=== PATIENT | female | born 1955 | race Caucasian/White ===

== ENCOUNTER 2022-12-14 16:52 | Outpatient (REF) | payer OTHER, SELFPAY ==
[2022-12-14 17:37] LABS: Influenza A PCR NEGATIVE (Negative); Influenza B PCR NEGATIVE (Negative); Resp Syncy Virus RNA Qual PCR NEGATIVE (Negative); SARS COV2 PCR INHOUSE NEGATIVE (Negative)
== END 2022-12-14 16:53 | disposition home or self-care (01) ==
LOC: HO.LNP 16:52
PROVIDERS: Visit Provider Nurse Practitioner Family
DX: Z20.822 Contact with and (suspected) exposure to COVID-19 (principal); R09.89 Other specified symptoms and signs involving the circulatory and respiratory systems
CPT/HCPCS: 0241U

== ENCOUNTER 2024-12-26 15:44 | Outpatient (AMB) | payer OTHER, SELFPAY ==
--- OUTSIDE RECORDS SUMMARY | 2024-12-26 15:46 | XMS_ITS | Patient Health Record ---
Author Organization [facility] Jefry gina [place] Address [address] [place] [address] Care Team Providers Care Timber Hewer Name Role Phone Tiago Green MD Primary Care Provider Unavail able FitzpatrickRandy Unavailable [phone] Allergies No Known Allergies Reason For Referral No Information Medications Medication SIG (Take, Route, Frequency, Duration) Notes Start Date End Date Status Feldene 20 MG 1 capsule with food Orally Once a day for 30 day(s) 06/19/2022 Active Feldene 20 MG 1 capsule with food Orally Once a day for 30 day(s) 07/10/2022 Active Night Splint AFO - L1930 as directed 06/19/2022 Active Physical Therapy . . . 2-3x/week for 3-4 weeks Active Collagen Active Immunizations Vaccine Route Administration Date Status Comme nts COVID-19 Moderna Vaccine Unknown 06/12/2022 Administere d 2020,2020,2021 Social History Tobacco Use: Social History Observation Description Date Details (start date - stop date) Never Smoker NA - NA Tobacco Use/Smoking Question Answer Notes Are you a: nonsmoker Alcohol Screen Question Answer Notes Did you have a drink contain ing alcohol in the past year? Yes How often did you have a dri nk containing alcohol in the past year? Monthly or less (1 point) Points 1 Interpretation Negative Tobacco use other than smoking: Question Answer Notes Are you an other tobacco user? No Plan Of Treatment Pending Test Test Name Order Date X ray : Foot, left 3V 06/19/2022 Insurance Providers Payer Name Payer Address Payer Phone Subscriber Number Group Number Insured Name Patient Relationship to Insured Coverage Start Date Coverage End Date [facility] [address] [place] [address] [id number] Tina Mccarthy Self - patient is the insured Medical (General) History Medical History History ICD Code covid-19 Warts Surgical History Surgery Date(Month/Year) Hospitalization History Reason Date(Month/Year) urgent care - ear pain 2020
--- NOTE | 2024-12-26 15:47 | MHC.PC.OV ---
Vital Signs 12/26/24 15:52 Height 5 ft 5.35 in Weight 226 lb BMI 37.2 BP 172/72 H Respiration 14 Pulse 84 Pulse Source Pulse Oximeter Temp 98.4 F Temp Source Temporal Artery Scan Pulse Oximetry (%) 96 Oxygen Delivery Method Room Air Intake Visit Reasons: establish care [place] Required: No Accompanied by: Self / Same As Patient Allergies No Known Allergies Allergy (Verified 12/26/24 16:13) Medication List - Last Reconciled 12/26/24 by Nova Arce PA-C No Known Home Meds Tobacco use date assessed: 12/26/24 Fall risk assessment: No Falls in past year Last assessed Fall Risk: 12/26/24 Dental Screening Dental Screen Date: 12/26/24 Did you have a dental visit in the last 12 months?: Yes Did you have a dental problem in the last 6 months where you did not have access to dental care?: No Was dental information given to patient?: Patient has dentist HPI establish care HPI Details The patient is a 69-year-old female presenting with concerns primarily related to essential hypertension. She reports not having had consistent blood pressure monitoring at home. It was noted previously to be elevated at her [employer] worker's office, with a systolic reading of about 142 mmHg. During today's visit, her blood pressure was measured at 170/76 mmHg, a consistent trend with previous elevated readings, prompting a discussion about starting medication. The patient is apprehensive about potential medication side effects but understands the importance of managing her hypertension to reduce risks associated with cardiovascular pathologies. The patient has a past medical history of atrial fibrillation, which was treated with medication some years ago and managed successfully, leading to the cessation of medication. A heart murmur was noticed during this visit and should be closely evaluated. Previous medical records reveal the presence of hypercholesterolemia, currently managing cholesterol levels with lifestyle modifications. 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 - Family: Has three children, and interacts with her sister who she prefers for healthcare decisions. - General Activity: Described less active engagement related to her work context. - Nutritional Intake and Substance Use: No specific discussions regarding details of diet or substance use habits were observed. [facility] Medical History (Updated 12/26/24 @ 16:51 by Nova Arce PA-C) Class 2 obesity with body mass index (BMI) of 37.0 to 37.9 in adult Encounter for brief counseling about health care proxy document DNR (do not resuscitate) (~12/26/24) DNI (do not intubate) (~12/26/24) Heart murmur Hypertension Atrial fibrillation Internal hemorrhoids History of mammogram (~07/2024) History of diverticulosis Tubular adenoma Pure hypercholesterolemia, unspecified Hyperlipidemia Establishing care with new doctor, encounter for Surgical History History of colonoscopy (~06/01/17) Family History Father Lung cancer Mother Cancer Social History Housing: Condominium Alcohol intake: current Alcohol intake frequency: holidays/special occasions only Patient Tobacco Use Status: Former Tobacco user service: No Current occupational status: employed Cognitive needs: No Hearing needs: No Vision needs: Yes (rx glasses) Questionnaire PHQ-9 Over the last 2 weeks, how often have you been bothered by any of the following problems? 1. Little interest or pleasure in doing things: not at all 2. Feeling down, depressed, or hopeless: not at all 3. Trouble falling or staying asleep, or sleeping too much: not at all 4. Feeling tired or having little energy: not at all 5. Poor appetite or overeating: not at all 6. Feeling bad about yourself - or that you are a failure or have let yourself or your family down: not at all 7. Trouble concentrating on things, such as reading the newspaper or watching television: not at all 8. Moving or speaking so slowly that other people could have noticed. Or the opposite - being so fidgety or restless that you have been moving around a lot more than usual: not at all 9. Thoughts that you would be better off or of hurting yourself in some way: not at all Total score: 0 Depression Screening Interpretation: Negative Depression Screening Done: Yes 03840 - PHQ-9 Billing: Yes Source: Developed by Drs. Tiago Hidalgo, Alyx Delcid, Raymond Campos and colleagues, with an educational new from [employer]. Thrive Questionnaire Date Thrive assessed: 12/26/24 I am a: Patient What is your living situation today?: I have a steady place to live Within the past 12 months, did the food you bought not last and you didn't have the money to get more?: Never true Within the past 12 months, did you worry whether your food would run out before you got money to buy more?: Never true Do you have trouble paying for medicines?: No Do you have trouble getting transportation to medical appointments?: No Do you have trouble paying your heating and electricity bill?: No Do you have trouble taking care of your child, family member or friend?: No Do you have trouble with day-to-day activities such as bathing, preparing meals, shopping, managing finances, etc.?: No Are you currently unemployed and looking for a job?: No Are you interested in more education?: No Please select the resources that you would like help with: None THRIVE Score: 0 AUDIT C Alcohol Use Questionnaire (AUDIT-C) 1. How often do you have a drink containing alcohol?: Monthly or less 2. How many drinks containing alcohol do you have on a typical day when you are drinking?: 1 or 2 3. How often do you have six or more drinks on one occasion?: Never Total Score: 1 Score Reviewed/Action Taken: No KIRILL-7 AMB Questionnaire KIRILL-7 Date KIRILL - 7 assessed: 12/26/24 Feeling nervous, anxious, or on edge: 0 = Not at all Not being able to stop or control worryin = Not at all Worrying too much about different things: 0 = Not at all Trouble relaxin = Not at all Being so restless that it is hard to sit still: 0 = Not at all Becoming easily annoyed or irritable: 0 = Not at all Feeling afraid as if something awful might happen: 0 = Not at all Total KIRILL-7 score (0-4 normal; 5-9 mild; 10-14 moderate; 15-21 severe): 0 Source: Developed by Drs. Tiago Hidalog, Alyx Delcid, Raymond Campos and colleagues, with an educational new from [employer]. KIRILL-7 Assessment Billing KIRILL-7 Assessment Tool: KIRILL-7 Assessment 16713 Review of Systems Const Details: - Cardiovascular: Reports a history of atrial fibrillation; denies current symptoms. - Gastrointestinal: Denies abdominal pain, nausea, vomiting, diarrhea, or change in bowel habits. - Respiratory: Denies shortness of breath or chest pain. - Hematologic: Denies frequent or heavy bleeding. - General: Denies fatigue or significant weight change. Physical exam (Primary Care) Vital Signs: Last Vital Signs Temp 98.4 F 12/26/24 15:52 Pulse 84 12/26/24 15:52 Resp 14 12/26/24 15:52 BP 172/72 H 12/26/24 15:52 Pulse Ox 96 12/26/24 15:52 Oxygen Delivery Method Room Air 12/26/24 15:52 Care Plan Goal for BP management: <140/90 will start patient on lisinopril 10 mg daily and re-evaluate in 1 month BMI result Body Mass Index 37.2 BMI Assessment/Plan discussion: High BMI High, discussed plan: lifestyle, weight reduction, dietary, physical activity and alcohol moderation Tobacco/Smoking Status: Tobacco use Status Tobacco use date assessed 12/26/24 12/26/24 15:49 Patient Tobacco Use Status Former Tobacco user 12/26/24 16:00 PHQ-9: PHQ-9 Score PHQ-9: Total score 0 12/26/24 16:00 Depression Screening Interpretation: Negative Thrive Assessment: Date of Thrive Assessment Date Thrive assessed 12/26/24 12/26/24 16:00 Advance Care Planning discussion: Completed/Scanned Date of discussion: 12/26/24 Who was present: Patient, ESTEPHANIA Bhatt, Forms completed: Health Care Proxy and MOLST Time spent: 1-15 minutes, not on file Actual minutes spent: 15 Did not discuss due to Cultural/Spiritual beliefs: No Const Other: Appearance: Alert. Oriented X3. No acute distress. Head: Normal external exam. Normocephalic. Atraumatic. Eyes: Pupils are equal, round, and reactive to light. Extraocular movements intact. Conjunctiva and sclera normal. Eyelids normal. Throat: Moist mucous membranes. Neck: Normal inspection. Neck supple. Full range of motion. Cardiovascular: Normal heart rate and rhythm. Heart sound normal. Heart murmurs noted. Pulses normal throughout. Blood pressure recorded at 172/72. Respiratory: No respiratory distress. Painless inspiration. Breath sounds normal. No wheezes/rales/rhonchi noted. Chest nontender. No accessory muscle usage noted or decreased air movement noted. Back: Full range of motion noted. Skin: Skin warm and dry. Normal skin color. Normal skin turgor. No rashes/lesions/lacerations noted. Extremities: No lower extremity edema. Extremities exhibit normal range of motion. Extremities nontender. Neuro: Oriented X 3. No motor deficit. No sensory deficit. Reflexes normal. Results Reviewed Results Reviewed: - Labs: Blood work last completed in 2018; to be repeated including CBC, CMP, hemoglobin A1c, lipid panel, liver panel, vitamin B12, vitamin D, magnesium, and TSH levels. - Diagnostic Imaging: Echocardiogram ordered to evaluate heart murmur. Coding Level of Care Code New Pt Level 4 (58969) Complex EM visit Add On G2211 Diagnoses Establishing care with new doctor, encounter for Z76.89 Hypertension I10 Atrial fibrillation I48.91 Heart murmur R01.1 Pure hypercholesterolemia, unspecified E78.00 History of diverticulosis Z87.19 Internal hemorrhoids K64.8 Encounter for brief counseling about health care proxy document Z71.89 DNR (do not resuscitate) Z66 DNI (do not intubate) Z78.9 Tubular adenoma D36.9 Class 2 obesity with body mass index (BMI) of 37.0 to 37.9 in adult E66.812; Z68.37 Additional Codes PHQ-9 - 40521 - PHQ-9 Billing: Yes ([id number]) KIRILL-7 Assessment Billing - KIRILL-7 Assessment Tool: KIRILL-7 Assessment 41175 ([id number]) Vital Signs *Quality* - Advance Care Planning discussion: Completed/Scanned ([id number]) Vital Signs *Quality* - Time spent: 1-15 minutes, not on file ([id number]) Assessment & Plan Assessment & Plan (1) Establishing care with new doctor, encounter for: Code(s): Z76.89 - Persons encountering health services in other specified circumstances Category: Medical (2) Hypertension: Code(s): I10 - Essential (primary) hypertension Category: Medical Plan: Start lisinopril 10 mg orally daily to help control blood pressure. Schedule a follow-up in a month to check the effectiveness and collect home blood pressure readings. Condition is chronic and stable continue to monitor. (3) Atrial fibrillation: Code(s): I48.91 - Unspecified atrial fibrillation Category: Medical Plan: Monitor for symptoms of recurrence, though the patient is currently without treatment. Condition is chronic and stable continue to monitor. (4) Heart murmur: Code(s): R01.1 - Cardiac murmur, unspecified Category: Medical Plan: Obtain an echocardiogram to evaluate the significant heart murmur noted. Condition is chronic and stable continue to monitor. (5) Pure hypercholesterolemia, unspecified: Code(s): E78.00 - Pure hypercholesterolemia, unspecified Category: Medical Plan: Manage through lifestyle modifications; follow up to assess lipid levels. Condition is chronic and stable will continue to monitor. (6) History of diverticulosis: Code(s): Z87.19 - Personal history of other diseases of the digestive system Category: Medical Plan: Scheduled follow-up colonoscopy in February for assessment. Condition is chronic and stable will continue to monitor. (7) Internal hemorrhoids: Code(s): K64.8 - Other hemorrhoids Category: Medical Plan: Continue observation; no current symptoms necessitating treatment. Condition is chronic and stable will continue to monitor. (8) Encounter for brief counseling about health care proxy document: Code(s): Z71.89 - Other specified counseling Category: Medical Plan: Patient placed her sister as her healthcare proxy. I instructed patient to educate her sister on her health care advanced planning wishes. Patient given copy of MOLST and healthcare proxy form/original. Also uploaded to the patient's chart. (9) DNR (do not resuscitate): Onset Date: ~12/26/24 Code(s): Z66 - Do not resuscitate Category: Medical Plan: Patient placed her sister as her healthcare proxy. I instructed patient to educate her sister on her health care advanced planning wishes. Patient given copy of MOLST and healthcare proxy form/original. Also uploaded to the patient's chart. (10) DNI (do not intubate): Onset Date: ~12/26/24 Code(s): Z78.9 - Other specified health status Category: Medical Plan: Patient placed her sister as her healthcare proxy. I instructed patient to educate her sister on her health care advanced planning wishes. Patient given copy of MOLST and healthcare proxy form/original. Also uploaded to the patient's chart. (11) Tubular adenoma: Code(s): D36.9 - Benign neoplasm, unspecified site Category: Medical Plan: Scheduled follow-up colonoscopy in February for assessment. (12) Class 2 obesity with body mass index (BMI) of 37.0 to 37.9 in adult: Code(s): E66.812 - Obesity, class 2; Z68.37 - Body mass index [BMI] 37.0-37.9, adult Category: Medical Plan: Patient to improve diet and exercise regimen. Condition is chronic and stable continue to monitor. Plan Plan Patient was informed and verbally consented to the use of an ambient scribe for clinic note documentation during this visit. 1. Essential Hypertension Start lisinopril 10 mg orally daily to help control blood pressure. Schedule a follow-up in a month to check the effectiveness and collect home blood pressure readings. 2. History Of Atrial Fibrillation Monitor for symptoms of recurrence, though the patient is currently without treatment. 3. Heart Murmur Obtain an echocardiogram to evaluate the significant heart murmur noted. 4. Hypercholesterolemia Manage through lifestyle modifications; follow up to assess lipid levels. 5. Diverticulosis Scheduled follow-up colonoscopy in February for assessment. 6. Internal Hemorrhoids Continue observation; no current symptoms necessitating treatment. During this consultation, I discussed the management plan for essential hypertension with the patient, emphasizing the use of lisinopril and the importance of monitoring blood pressure at home. We reviewed potential side effects and when to seek medical intervention. I highlighted the necessity of the echocardiogram to evaluate the heart murmur, discussing its potential cause and implications. The benefits of medication, including kidney protection and blood pressure regulation, were outlined. Consent was obtained after reviewing the reasons for initiation of treatment and the procedural steps for future exams like the echocardiogram. Follow-up was advised in a month to assess blood pressure control and medication response. Orders: Orders C Reactive Protein Today Z00.00 - Encounter for general adult medical examination without abnormal findings Comprehensive [place]. Panel Fast Today Z00.00 - Encounter for general adult medical examination without abnormal findings TSH reflex Free T4 Today Z00.00 - Encounter for general adult medical examination without abnormal findings Complete Blood Count Auto Diff Today Z00.00 - Encounter for general adult medical examination without abnormal findings Hemoglobin A1c Today Z00.00 - Encounter for general adult medical examination without abnormal findings Lipid Panel Today Z00.00 - Encounter for general adult medical examination without abnormal findings Liver Panel Today Z00.00 - Encounter for general adult medical examination without abnormal findings Magnesium Today Z00.00 - Encounter for general adult medical examination without abnormal findings Vitamin B12 and Folate Today Z00.00 - Encounter for general adult medical examination without abnormal findings Vitamin D 25-OH Total Today Z00.00 - Encounter for general adult medical examination without abnormal findings CA echo transthoracic complete Today R01.1 - Cardiac murmur, unspecified Medications: New lisinopril 10 mg PO DAILY 90 tabs 1RF I10 - Essential (primary) hypertension Patient Instructions: - Take lisinopril 10 mg once daily as prescribed to help lower blood pressure. - Get a blood pressure cuff and monitor your readings at home, noting them in a log. - Schedule and complete all recommended blood tests before your next visit. - Attend the echocardiogram appointment when it is scheduled. - Return in one month for a follow-up appointment to evaluate treatment response. - Contact medical services if you experience side effects, such as persistent cough or swelling. - Continue observing for any symptoms related to diverticulosis or hemorrhoids, and seek care if needed. - Discuss with your family and ensure they understand your healthcare preferences in case of emergency. - Lifestyle modifications to lower cholesterol and manage weight can contribute positively to your overall health.
[2024-12-26 15:52] VITALS: BP 172/72; PULSE 84; RESP 14; TEMP 36.9; O2SAT 96; BMI 37.2
== END 2024-12-26 16:43 | disposition home or self-care (01) ==
LOC: HO.HMCSH 15:44
PROVIDERS: PCP Internal Medicine; Visit Provider Physician Assistant Medical
DX: Z76.89 Persons encountering health services in other specified circumstances (principal); I10 Essential (primary) hypertension; I48.91 Unspecified atrial fibrillation; R01.1 Cardiac murmur, unspecified; E78.00 Pure hypercholesterolemia, unspecified; Z87.19 Personal history of other diseases of the digestive system; K64.8 Other hemorrhoids; Z71.89 Other specified counseling; Z66 Do not resuscitate; Z78.9 Other specified health status; D36.9 Benign neoplasm, unspecified site; E66.812 Obesity, class 2; Z68.37 Body mass index [BMI] 37.0-37.9, adult

== ENCOUNTER → 2024-12-26 15:44 | Outpatient (BNVA) | payer OTHER, SELFPAY | PROVIDERS: PCP Internal Medicine; Visit Provider Physician Assistant Medical | DX: I10 Essential (primary) hypertension (principal); I48.91 Unspecified atrial fibrillation; R01.1 Cardiac murmur, unspecified; E78.00 Pure hypercholesterolemia, unspecified; K64.8 Other hemorrhoids; D36.9 Benign neoplasm, unspecified site; E66.812 Obesity, class 2; Z68.37 Body mass index [BMI] 37.0-37.9, adult; Z76.89 Persons encountering health services in other specified circumstances; Z66 Do not resuscitate; Z78.9 Other specified health status; Z71.89 Other specified counseling; Z87.19 Personal history of other diseases of the digestive system | CPT/HCPCS: 96127 ==

== ENCOUNTER 2025-01-08 07:59 | Outpatient (REF) | payer OTHER, SELFPAY ==
--- OUTSIDE RECORDS SUMMARY | 2025-01-08 08:06 | XMS_ITS | Patient Health Record ---
Author Organization [facility] Jefry gina [place] Address [address] [place] [address] Care Team Providers Care Billiard Table Mechanic Name Role Phone Tiago Green MD Primary Care Provider Unavail able FitzpatrickRandy Unavailable [phone] Allergies No Known Allergies Reason For Referral [...] Insured Coverage Start Date Coverage End Date [facility] [address] [facility] [place] [address] [id number] Tina Mccarthy Self - patient is the insured Medical (General) History Medical History History ICD Code covid-19 Warts Surgical History Surgery Date(Month/Year) Hospitalization History Reason Date(Month/Year) urgent care - ear pain 2020
[2025-01-08 10:18] LABS: MANUAL DIFF FLAG NO
[2025-01-08 10:32] LABS: Basophils Percent Auto 0.6 % (0-2); Eosinophils Absolute Auto 0.1 X10*3/uL (0.0-0.4); Eosinophils Percent Auto 1.2 % (0-4); Hematocrit 41.4 % (37.0-47.0); Hemoglobin 13.6 g/dl (12.0-16.0); Imm Gran Abs Auto 0.02 X10*3/uL (0.00-0.03); Imm Gran Pct Auto 0.3 % (0.0-0.4); Lymphocytes Absolute Auto 2.1 X10*3/uL (1.2-4.9); Lymphocytes Percent Auto 30.2 % (20-40); Mean Corpuscular HGB Conc 32.9 g/dl (31.0-35.0); Mean Corpuscular Hemoglobin 29.6 pg (27.0-33.0); Mean Corpuscular Volume 90.2 fL (80.0-98.0); Mean Platelet Volume 12.1 fL (9.4-12.3); Monocytes Absolute Auto 0.5 X10*3/uL (0.1-1.2); Monocytes Percent Auto 7.2 % (2-11); Neutrophils Absolute Auto 4.2 x10*3/uL (2.0-8.3); Neutrophils Percent Auto 60.5 % (45-73); Platelet Count 225 X10*3/uL (160-400); Red Blood Count 4.59 X10*6/uL (4.20-5.50); Red Cell Distribution Width 13.2 % (11.0-16.0); White Blood Count 6.9 X10*3/uL (4.8-10.8)
[2025-01-08 10:45] LABS: Estimated Average Glucose 111 mg/dL; Hemoglobin A1c % 5.5 % (<6.0); Total Hemoglobin (HGBA1C) 3552.1248 umol/L
[2025-01-08 11:05] LABS: Alanine Aminotransferase 35 U/L (0-31); Albumin Level 4.3 g/dL (3.5-5.0); Alkaline Phosphatase 62 U/L (39-117); Anion Gap 11 (12-20); Aspartate Amino Transferase 27 U/L (5-31); Bilirubin Direct 0.2 mg/dL (0.0-0.5); Bilirubin Total 0.6 mg/dL (0.0-1.0); Blood Urea Nitrogen 9 mg/dL (9-16); C Reactive Protein 0.37 mg/dL (< or = 0.50); Calcium 9.3 mg/dL (8.4-10.2); Carbon Dioxide 27 mmol/L (22-29); Chloride 107 mmol/L (96-108); Cholesterol 229 mg/dL (<200); Estimated Glomerular Filt Rate > 60; Glucose Fasting 94 mg/dL (60-99); HDL Cholesterol 53 mg/dL (>40); LDL Cholesterol Calculated 151 mg/dL (<100); Potassium 4.1 mmol/L (3.3-5.1); Sodium 141 mmol/L (135-145); Total Protein 6.6 g/dL (6.5-8.0); Triglycerides 127 mg/dL (<150)
[2025-01-08 11:27] LABS: TSH reflex Free T4 2.54 uIU/mL (0.32-4.0)
[2025-01-08 11:32] LABS: Folate 13.1 ng/mL (> or = 4.0); Vitamin B12 583 pg/mL (200-900)
== END 2025-01-08 08:00 | disposition home or self-care (01) ==
LOC: HO.HMGCLDS 07:59
PROVIDERS: PCP Physician Assistant Medical; Visit Provider Physician Assistant Medical
DX: Z00.00 Encounter for general adult medical examination without abnormal findings (principal); Z13.1 Encounter for screening for diabetes mellitus; Z13.6 Encounter for screening for cardiovascular disorders
CPT/HCPCS: 36415; 80053; 80061; 80076; 82248; 82306; 82607; 82746; 83036; 83735; 84443; 85025; 86140

== ENCOUNTER 2025-01-30 15:50 | Outpatient (AMB) | payer OTHER, SELFPAY ==
--- OUTSIDE RECORDS SUMMARY | 2025-01-30 15:52 | XMS_ITS | Patient Health Record ---
Author Organization [facility] Address [address] [place] [address] Care Team Providers Care Station Cleaning Porter Name Role Phone Marvin Cuellar MD Primary Care Provider Tiago Tineo Unavailable [phone] Reason For Referral No Information Medications Medication SIG (Take, Route, Fr equency, Duration) Notes Start Date End Date Status Aspir-81 81 MG 1 tablet Orally Once a day Active Social History Tobacco Use: Social History Observation Description Date Details (start date - stop date) Former Smoker NA - NA Tobacco Use/Smoking Question Answer Notes Patient is a former smoker How long has it been since you last smoked? > 10 years Alcohol Screen Question Answer Notes Did you have a drink contain ing alcohol in the past year? Yes How often did you have a dri nk containing alcohol in the past year? Monthly or less (1 point) How many drinks did you have on a typical day when you were drinking in the past year? 1 or 2 drinks (0 point) How often did you have 6 or more drinks on one occasion in the past year? Never (0 point) Points 1 Interpretation Negative Section Notes: Nonsmoker; no sig alcohol Problems Problem Type SNOMED Code ICD Code Onset Dates Problem Status W/U Status Risk Notes Problem 962935520 Encounter for screening for malignant neoplasm of colon (Z12.11) Active confirmed Problem 743998549 History of adenomatous polyp of colon (Z86.010) Active confirmed Problem 235251998 Preprocedural examination (Z01.818) Active confirmed Plan Of Treatment Future Test Test Name Order Date COLONOSCOPY 04/12/2017 Next Appt Details Provider Name:Tiago Candelaria , 03/04/2025 04:20:00 PM, [address] [facility], [address], [place], [address], Insurance Providers Payer Name Payer Address Payer Phone Subscriber Number Group Number Insured Name Patient Relationship to Insured Coverage Start Date Coverage End Date [facility] [address] [place] [address] [phone] [id number] THALIA BRIAN Self - patient is the insured Medical (General) History Medical History History ICD Code Denies DC,DM,CVA,Lung disease,renal dise ase Colonoscopy in 09/2010--1 sma ll tubular adenoma, mild sigmoid diverticulosis, internal hemorrhoids
[2025-01-30 16:05] VITALS: BP 148/67; PULSE 80; RESP 16; TEMP 36.9; O2SAT 98; BMI 36.7
--- NOTE | 2025-01-30 16:05 | MHC.PC.OV ---
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 She was started on lisinopril 10 mg on December 26, 2024, and reports an intermittent cough, although not every day. She denies any dizziness, chest pain, shortness of breath, or gastrointestinal symptoms. Initially, her home blood pressure readings were in the 160s/90s, but they have now decreased to the 130s/40s. During today's visit, her blood pressure was initially 148/67 mmHg, which decreased to 124/66 mmHg after sitting for 10 minutes. Her fasting blood work from January 08, 2025, showed normal complete blood count and chemistry. Her ALT was mildly elevated at 35 U/L, but all other liver enzymes were normal. Her total cholesterol was 229 mg/dL, and LDL cholesterol was 151 mg/dL. All other labs, including thyroid function, vitamin D, vitamin B12, and hemoglobin A1c, were within normal limits. [facility] Medical History (Updated 01/30/25 @ 17:36 by Nova Arce PA-C) Elevated ALT measurement Class 2 obesity with body mass index (BMI) of 37.0 to 37.9 in adult Encounter for brief counseling about health care proxy document DNR (do not resuscitate) (~12/26/24) DNI (do not intubate) (~12/26/24) Heart murmur Hypertension Atrial fibrillation Internal hemorrhoids History of mammogram (~07/2024) History of diverticulosis Tubular adenoma Pure hypercholesterolemia, unspecified Hyperlipidemia Establishing care with new doctor, encounter for Surgical History History of colonoscopy (~06/01/17) Family History Father Lung cancer Mother Cancer Social History Housing: Condominium Alcohol intake: current Alcohol intake frequency: holidays/special occasions only Patient Tobacco Use Status: Former Tobacco user service: No Current occupational status: employed Cognitive needs: No Hearing needs: No Vision needs: Yes (rx glasses) Questionnaire PHQ-9 Over the last 2 weeks, how often have you been bothered by any of the following problems? 1. Little interest or pleasure in doing things: not at all 2. Feeling down, depressed, or hopeless: not at all 3. Trouble falling or staying asleep, or sleeping too much: not at all 4. Feeling tired or having little energy: not at all 5. Poor appetite or overeating: not at all 6. Feeling bad about yourself - or that you are a failure or have let yourself or your family down: not at all 7. Trouble concentrating on things, such as reading the newspaper or watching television: not at all 8. Moving or speaking so slowly that other people could have noticed. Or the opposite - being so fidgety or restless that you have been moving around a lot more than usual: not at all 9. Thoughts that you would be better off or of hurting yourself in some way: not at all Total score: 0 Depression Screening Interpretation: Negative Depression Screening Done: Yes 92021 - PHQ-9 Billing: Yes Source: Developed by Drs. Tiago Hidalgo, Alyx Delcid, Raymond Campos and colleagues, with an educational new from [employer]. Thrive Questionnaire Date Thrive assessed: 12/26/24 I am a: Patient What is your living situation today?: I have a steady place to live Within the past 12 months, did the food you bought not last and you didn't have the money to get more?: Never true Within the past 12 months, did you worry whether your food would run out before you got money to buy more?: Never true Do you have trouble paying for medicines?: No Do you have trouble getting transportation to medical appointments?: No Do you have trouble paying your heating and electricity bill?: No Do you have trouble taking care of your child, family member or friend?: No Do you have trouble with day-to-day activities such as bathing, preparing meals, shopping, managing finances, etc.?: No Are you currently unemployed and looking for a job?: No Are you interested in more education?: No Please select the resources that you would like help with: None THRIVE Score: 0 AUDIT C Alcohol Use Questionnaire (AUDIT-C) 1. How often do you have a drink containing alcohol?: Monthly or less 2. How many drinks containing alcohol do you have on a typical day when you are drinking?: 1 or 2 3. How often do you have six or more drinks on one occasion?: Never Total Score: 1 Score Reviewed/Action Taken: No KIRILL-7 AMB Questionnaire KIRILL-7 Date KIRILL - 7 assessed: 12/26/24 Feeling nervous, anxious, or on edge: 0 = Not at all Not being able to stop or control worryin = Not at all Worrying too much about different things: 0 = Not at all Trouble relaxin = Not at all Being so restless that it is hard to sit still: 0 = Not at all Becoming easily annoyed or irritable: 0 = Not at all Feeling afraid as if something awful might happen: 0 = Not at all Total KIRILL-7 score (0-4 normal; 5-9 mild; 10-14 moderate; 15-21 severe): 0 Source: Developed by Drs. Tiago Hidalgo, Alyx Delcid, Raymond Campos and colleagues, with an educational new from [employer]. KIRILL-7 Assessment Billing KIRILL-7 Assessment Tool: KIRILL-7 Assessment 92444 Review of Systems Const Details: - Cardiovascular: Denies chest pain, dizziness, or orthopnea. - Respiratory: Reports intermittent cough. Denies dyspnea. - Gastrointestinal: Denies gastrointestinal symptoms. All systems reviewed & are unremarkable except as noted in HPI and below Physical exam (Primary Care) Vital Signs: Last Vital Signs Temp 98.5 F 01/30/25 16:05 Pulse 80 01/30/25 16:05 Resp 16 01/30/25 16:05 BP 148/67 H 01/30/25 16:05 Pulse Ox 98 01/30/25 16:05 Oxygen Delivery Method Room Air 01/30/25 16:05 Care Plan Goal for BP management: <140/90 at Goal BMI result Body Mass Index 36.7 BMI Assessment/Plan discussion: High BMI High, discussed plan: lifestyle, weight reduction, dietary, physical activity and alcohol moderation Tobacco/Smoking Status: Tobacco use Status Tobacco use date assessed 01/30/25 01/30/25 16:09 Patient Tobacco Use Status Former Tobacco user 01/30/25 16:09 PHQ-9: PHQ-9 Score PHQ-9: Total score 0 01/30/25 16:09 Depression Screening Interpretation: Negative Thrive Assessment: Date of Thrive Assessment Date Thrive assessed 12/26/24 01/30/25 16:09 Const Other: Appearance: Alert. Oriented X3. No acute distress. Head: Normal external exam. Normocephalic. Atraumatic. Eyes: Pupils are equal, round, and reactive to light. Extraocular movements intact. Conjunctiva and sclera normal. Eyelids normal. Throat: Pharynx normal. Uvula midline. Moist mucous membranes. Neck: Normal inspection. Neck supple. Full range of motion. Cardiovascular: Normal heart rate and rhythm. Respiratory: No respiratory distress. Painless inspiration. Back: Full range of motion noted. Skin: Skin warm and dry. Normal skin color. Extremities: Extremities exhibit normal range of motion. Results Reviewed Results Reviewed: - Labs: Normal CBC and chemistry, ALT mildly elevated at 35 U/L, total cholesterol 229 mg/dL, LDL 151 mg/dL, normal thyroid function, vitamin D, vitamin B12, and hemoglobin A1c. Coding Level of Care Code Est Pt Level 4 (33337) Complex EM visit Add On G2211 Diagnoses Hypertension I10 Hyperlipidemia E78.5 Pure hypercholesterolemia, unspecified E78.00 Elevated ALT measurement R74.01 Additional Codes KIRILL-7 Assessment Billing - KIRILL-7 Assessment Tool: KIRILL-7 Assessment 42417 ([id number]) PHQ-9 - 43615 - PHQ-9 Billing: Yes ([id number]) Assessment & Plan Assessment & Plan (1) Hypertension: Code(s): I10 - Essential (primary) hypertension Category: Medical Plan: The patient will continue lisinopril 10 mg daily and return in 3 months for a blood pressure check or sooner if symptoms worsen. She was advised on lifestyle modifications, including dietary changes and exercise, to help manage her blood pressure. (2) Hyperlipidemia: Code(s): E78.5 - Hyperlipidemia, unspecified Category: Medical Plan: The patient declined cholesterol-lowering medication and was provided with pamphlets on natural methods to lower cholesterol through diet and exercise. (3) Pure hypercholesterolemia, unspecified: Code(s): E78.00 - Pure hypercholesterolemia, unspecified Category: Medical Plan: The patient declined cholesterol-lowering medication and was provided with pamphlets on natural methods to lower cholesterol through diet and exercise. (4) Elevated ALT measurement: Code(s): R74.01 - Elevation of levels of liver transaminase levels Category: Medical Plan: The mildly elevated ALT will be monitored, and no immediate intervention is required as other liver enzymes are normal. Plan Plan Patient was informed and verbally consented to the use of an ambient scribe for clinic note documentation during this visit. 1. Essential Hypertension The patient will continue lisinopril 10 mg daily and return in 3 months for a blood pressure check or sooner if symptoms worsen. She was advised on lifestyle modifications, including dietary changes and exercise, to help manage her blood pressure. 2. Hyperlipidemia The patient declined cholesterol-lowering medication and was provided with pamphlets on natural methods to lower cholesterol through diet and exercise. 3. Elevated Alt The mildly elevated ALT will be monitored, and no immediate intervention is required as other liver enzymes are normal. We discussed the management of her hypertension, emphasizing the importance of continuing lisinopril and monitoring her blood pressure regularly. I provided information on lifestyle changes to help manage her blood pressure and cholesterol levels. The patient was informed about the mildly elevated ALT and that no immediate action is needed. Medications: Refilled lisinopril 10 mg PO DAILY 90 tabs 1RF I10 - Essential (primary) hypertension Patient Instructions: - Continue taking lisinopril 10 mg daily. - Monitor blood pressure regularly and report any significant changes. - Follow dietary and exercise recommendations to manage blood pressure and cholesterol. - Return for follow-up in 3 months or sooner if symptoms worsen.
[2025-01-30 17:02] VITALS: BP 124/66
== END 2025-01-30 16:34 | disposition home or self-care (01) ==
LOC: HO.HMCSH 15:50
PROVIDERS: PCP Physician Assistant Medical; Visit Provider Physician Assistant Medical
DX: I10 Essential (primary) hypertension (principal); E78.5 Hyperlipidemia, unspecified; E78.00 Pure hypercholesterolemia, unspecified; R74.01 Elevation of levels of liver transaminase levels

== ENCOUNTER → 2025-01-30 15:50 | Outpatient (BNVA) | payer OTHER, SELFPAY | PROVIDERS: PCP Physician Assistant Medical; Visit Provider Physician Assistant Medical | DX: I10 Essential (primary) hypertension (principal); E78.00 Pure hypercholesterolemia, unspecified; R74.01 Elevation of levels of liver transaminase levels; Z79.899 Other long term (current) drug therapy; Z13.31 Encounter for screening for depression | CPT/HCPCS: 96127 ==

== ENCOUNTER 2025-05-06 16:00 | Outpatient (AMB) | payer OTHER, SELFPAY ==
[2025-05-06 16:07] VITALS: BP 148/71; PULSE 83; TEMP 36.7; O2SAT 98
--- NOTE | 2025-05-06 16:07 | A.OFFPC_ITS ---
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 The patient has been on lisinopril 10 mg for hypertension management. She reports occasional mild cough, which is not bothersome and does not warrant a change in medication. Her blood pressure readings have generally been below 140 mmHg, with occasional readings in the 120s and 130s. However, recent measurements have shown a reading of 142/78 mmHg, indicating a slight elevation. The patient has been advised to increase her lisinopril dosage to 20 mg daily, either as a single dose or split into two doses of 10 mg each. She is instructed to monitor her blood pressure closely and report any readings below 100/60 mmHg or symptoms of dizziness. Social History - Exercise: The patient reports engaging in walking as a form of exercise. [facility] Medical History Elevated ALT measurement Class 2 obesity with body mass index (BMI) of 37.0 to 37.9 in adult Encounter for brief counseling about health care proxy document DNR (do not resuscitate) (~12/26/24) DNI (do not intubate) (~12/26/24) Heart murmur Hypertension Atrial fibrillation Internal hemorrhoids History of mammogram (~07/2024) History of diverticulosis Tubular adenoma Pure hypercholesterolemia, unspecified Hyperlipidemia Establishing care with new doctor, encounter for Surgical History History of colonoscopy (~06/01/17) Family History Father Lung cancer Mother Cancer Social History Housing: Condominium Alcohol intake: current Alcohol intake frequency: holidays/special occasions only Patient Tobacco Use Status: Former Tobacco user service: No Current occupational status: employed Cognitive needs: No Hearing needs: No Vision needs: Yes (rx glasses) Questionnaire PHQ-9 Over the last 2 weeks, how often have you been bothered by any of the following problems? 1. Little interest or pleasure in doing things: not at all 2. Feeling down, depressed, or hopeless: not at all 3. Trouble falling or staying asleep, or sleeping too much: not at all 4. Feeling tired or having little energy: not at all 5. Poor appetite or overeating: not at all 6. Feeling bad about yourself - or that you are a failure or have let yourself or your family down: not at all 7. Trouble concentrating on things, such as reading the newspaper or watching television: not at all 8. Moving or speaking so slowly that other people could have noticed. Or the opposite - being so fidgety or restless that you have been moving around a lot more than usual: not at all 9. Thoughts that you would be better off or of hurting yourself in some way: not at all Total score: 0 Depression Screening Interpretation: Negative Depression Screening Done: Yes 19227 - PHQ-9 Billing: Yes Source: Developed by Drs. Tiago Hidalgo, Alyx Delcid, Raymond Campos and colleagues, with an educational new from [employer]. Thrive Questionnaire Date Thrive assessed: 05/06/25 I am a: Patient What is your living situation today?: I have a steady place to live Within the past 12 months, did the food you bought not last and you didn't have the money to get more?: Never true Within the past 12 months, did you worry whether your food would run out before you got money to buy more?: Never true Do you have trouble paying for medicines?: No Do you have trouble getting transportation to medical appointments?: No Do you have trouble paying your heating and electricity bill?: No Do you have trouble taking care of your child, family member or friend?: No Do you have trouble with day-to-day activities such as bathing, preparing meals, shopping, managing finances, etc.?: No Are you currently unemployed and looking for a job?: No Are you interested in more education?: No Please select the resources that you would like help with: None THRIVE Score: 0 AUDIT C Alcohol Use Questionnaire (AUDIT-C) 1. How often do you have a drink containing alcohol?: Monthly or less 2. How many drinks containing alcohol do you have on a typical day when you are drinking?: 1 or 2 3. How often do you have six or more drinks on one occasion?: Never Total Score: 1 Score Reviewed/Action Taken: No KIRILL-7 AMB Questionnaire KIRILL-7 Date KIRILL - 7 assessed: 05/06/25 Feeling nervous, anxious, or on edge: 0 = Not at all Not being able to stop or control worryin = Not at all Worrying too much about different things: 0 = Not at all Trouble relaxin = Not at all Being so restless that it is hard to sit still: 0 = Not at all Becoming easily annoyed or irritable: 0 = Not at all Feeling afraid as if something awful might happen: 0 = Not at all Total KIRILL-7 score (0-4 normal; 5-9 mild; 10-14 moderate; 15-21 severe): 0 Source: Developed by Drs. Tiago Hidalgo, Alyx Delcid, Raymond prasad nd colleagues, with an educational new from [employer]. KIRILL-7 Assessment Billing KIRILL-7 Assessment Tool: KIRILL-7 Assessment 22491 Review of Systems Const Details: - Respiratory: Reports occasional mild cough. Denies persistent cough or other respiratory symptoms. All systems reviewed & are unremarkable except as noted in HPI and below Physical exam (Primary Care) Vital Signs: Last Vital Signs Temp 98.1 F 05/06/25 16:07 Pulse 83 05/06/25 16:07 BP 148/71 H 05/06/25 16:07 Pulse Ox 98 05/06/25 16:07 Oxygen Delivery Method Room Air 05/06/25 16:07 Care Plan Goal for BP management: <140/90 will increase lisinopril from 10 mg to 20 mg BMI Assessment/Plan discussion: High BMI High, discussed plan: lifestyle, weight reduction, dietary, physical activity, alcohol moderation and other Tobacco/Smoking Status: Tobacco use Status Tobacco use date assessed 05/06/25 05/06/25 16:09 Patient Tobacco Use Status Former Tobacco user 05/06/25 16:09 PHQ-9: PHQ-9 Score PHQ-9: Total score 0 05/06/25 16:20 Depression Screening Interpretation: Negative Thrive Assessment: Date of Thrive Assessment Date Thrive assessed 05/06/25 05/06/25 16:09 Const Other: Appearance: Alert. Oriented X3. No acute distress. Head: Normal external exam. Normocephalic. Atraumatic. Eyes: Pupils are equal, round, and reactive to light. Extraocular movements intact. Conjunctiva and sclera normal. Eyelids normal. Throat: Pharynx normal. Uvula midline. Moist mucous membranes. Neck: Normal inspection. Neck supple. Full range of motion. Cardiovascular: Blood pressure recorded at 142/78. Normal heart rate and rhythm. Heart sound normal. No murmurs noted. Pulses normal throughout. Respiratory: No respiratory distress. Painless inspiration. Breath sounds normal. No wheezes/rales/rhonchi noted. Chest nontender. No accessory muscle usage noted or decreased air movement noted. Back: Full range of motion noted. Skin: Skin warm and dry. Normal skin color. Extremities: No lower extremity edema. Extremities exhibit normal range of motion. Neuro: Oriented X 3. No motor deficit. No sensory deficit. Reflexes normal. Office Procedures Flu Questionnaire Does the patient have a severe egg allergy?: No Does the patient have severe life threatening allergies?: No Does the patient have a fever or illness today?: No Has the patient ever had Guillain-Amboy Syndrome?: No Has the patient ever had any past reaction to a flu shot?: No Immunizations Fluarix [id number] (PF) 45 mcg (15 mcg x 3)/0.5 mL IM syringe Performing Provider: Nova Arce PA-C [place] [facility] [place] [facility] Documented (not given) by: Ethel Waldron CMA on 05/06/25 16:20 Reason Not Given: Received Previously Coding Level of Care Code Est Pt Level 3 (27475) Complex EM visit Add On G2211 Diagnoses Hypertension I10 Additional Codes KIRILL-7 Assessment Billing - KIRILL-7 Assessment Tool: KIRILL-7 Assessment 23692 ([id number]) PHQ-9 - 12707 - PHQ-9 Billing: Yes ([id number]) Assessment & Plan Assessment & Plan (1) Hypertension: Code(s): I10 - Essential (primary) hypertension Category: Medical Plan: The patient will increase her lisinopril dosage to 20 mg daily, either as a single dose or split into two doses of 10 mg each. She is advised to monitor her blood pressure closely and report any readings below 100/60 mmHg or symptoms of dizziness. Follow-up is recommended in three months to reassess blood pressure control. Plan Plan Patient was informed and verbally consented to the use of an ambient scribe for clinic note documentation during this visit. 1. Essential Hypertension The patient will increase her lisinopril dosage to 20 mg daily, either as a single dose or split into two doses of 10 mg each. She is advised to monitor her blood pressure closely and report any readings below 100/60 mmHg or symptoms of dizziness. Follow-up is recommended in three months to reassess blood pressure control. During the visit, we discussed the management of the patient's hypertension. I explained the potential side effects of increasing lisinopril dosage and emphasized the importance of monitoring blood pressure regularly. We agreed on a follow-up plan to reassess her blood pressure in three months. Orders: Orders Influenza [id number] Immunization Today Z23 - Encounter for immunization Medications: Discontinued lisinopril Discontinued Reason: Doctor's Order 10 mg PO DAILY 90 tabs 1RF I10 - Essential (primary) hypertension Patient Instructions: - Increase lisinopril dosage to 20 mg daily, either as a single dose or split into two doses of 10 mg each. - Monitor blood pressure regularly and report any readings below 100/60 mmHg or symptoms of dizziness. - Follow up in three months to reassess blood pressure control.
[2025-05-06 17:37] VITALS: BP 142/78
--- OUTSIDE RECORDS SUMMARY | 2025-05-06 19:12 | XMS_ITS | Patient Health Record ---
Author Organization [facility] [place] Address [address] [place] [address] Care Team Providers Care Desktop Engineer Name Role Phone Tiago Green MD Primary Care Provider Unavail able Randy Quezada Unavailable [phone] Allergies No Known Allergies Reason For Referral No Information Medications Medication SIG (Take, Route, Frequency, Duration) Notes Start Date End Date Status Feldene 20 MG 1 capsule with food Orally Once a day; Duration: 30 day(s) 06/19/2022 Active Feldene 20 MG 1 capsule with food Orally Once a day; Duration: 30 day(s) 07/10/2022 Active Night Splint AFO - L1930 as directed 06/19/2022 Active Physical Therapy . . . 2-3x/week; Durat ion: 3-4 weeks 06/19/2022 Active Collagen Active Immunizations Vaccine Route Administration [...] Insured Coverage Start Date Coverage End Date [facility] [address] [facility] [place] [id number] Tina Mccarthy Self - patient is the insured Medical (General) History Medical History History ICD Code covid-19 Warts Surgical History Surgery Date(Month/Year) Hospitalization History Reason Date(Month/Year) urgent care - ear pain 2020
--- OUTSIDE RECORDS SUMMARY | 2025-05-06 19:12 | XMS_ITS | Patient Health Record ---
Author Organization [facility] Address [address] [place] [address] Care Team Providers Care Oral Therapist Name Role Phone JAMES ACEVEDO PA-C Primary Care Provider Tiago Tineo Unavailable [phone] Allergies No Known Allergies Reason For Referral No Information Medications Medication SIG (Take, Route, Fr equency, Duration) Notes Start Date End Date Status Centrum Silver - as directed Orally Active Aspir-81 81 MG 1 tablet Orally Once a day Not-Taking Lisinopril 10 MG 1 tablet Orally Once a day Active Social History Tobacco Use: Social History Observation Description Date Details (start date - stop date) Former Smoker 03/04/1964 - 03/08/1983 Tobacco Control (Standard) Question Answer Notes Tobacco use: Former smoker When did you start smoking? 03/04/1964 When did you stop smoking? 03/08/1983 AUDIT-C (Standard) Question Answer Notes Did you have a drink contain ing alcohol in the past year? Yes How often did you have a dri nk containing alcohol in the past year? 2 to 4 times a month (2 points) How many drinks did you have on a typical day when you were drinking in the past year? 1 or 2 drinks (0 point) How often did you have six o r more drinks on one occasion in the past year? Never (0 point) Points 2 Interpretation Negative Section Notes: Nonsmoker; no sig alcohol Nonsmoker; no sig alcohol Problems Problem Type SNOMED Code ICD Code Onset Dates Problem Status W/U Status Risk Notes Problem Screening for malignant neoplasm of colon (257122465) Encounter for screening for malignant neoplasm of colon (Z12.11) Active confirmed Problem History of adenomatous polyp of colon (139582839) History of adenomatous polyp of colon (Z86.010) Active confirmed Problem Preprocedural examination (199482134132939) Preprocedural examination (Z01.818) Active confirmed Vital Signs Heart Rate 80 /min 03/04/2025 Temperature 97.8 degrees Fahrenheit 03/04/2025 Blood pressure diastolic 01 mm Hg 03/04/2025 Height 66 in 03/04/2025 Blood pressure systolic 001 mm Hg 03/04/2025 Weight 220.2 lbs 03/04/2025 BMI 35.54 kg/m2 03/04/2025 Procedures Procedure Date Ordered Date Performed Result Body Sit e COLONOSCOPY 03/04/2025 N/A Encounters Encounter Location Date Provider Diagnosis [facility] [address] [place] [address] 03/04/2025 Tiago Candelaria History of adenomato us polyp of colon Z86.010 ; Preprocedural examination Z01.818 and Encounter for screening for malignant neoplasm of colon Z12.11 Assessments Encounter Date Diagnosis (ICD Code) Assessment Notes Treatment Notes Treatment Clinical Notes Section Notes 03/04/2025 History of adenomatous polyp of colon (ICD-10 - Z86.010) Overall, Thalia appears quite well. Given her age, good clinical appearance, history of a previous tubular adenoma, and her last colonoscopy approaching 8 years ago, I did recommend a follow-up colonoscopy for further screening purposes. We did review the rationale for this in regard to colon cancer prevention. Full consent has been obtained for this, including risks of bleeding and perforation. The procedure will be done with monitored anesthesia care. Thalia was comfortable with this plan. Thank you again for allowing me to participate in Thalia's care. I shall continue to keep you advised of her progress. 03/04/2025 Preprocedural examination (ICD-10 - Z01.818) Overall, Thalia appears quite well. Given her age, good clinical appearance, history of a previous tubular adenoma, and her last colonoscopy approaching 8 years ago, I did recommend a follow-up colonoscopy for further screening purposes. We did review the rationale for this in regard to colon cancer prevention. Full consent has been obtained for this, including risks of bleeding and perforation. The procedure will be done with monitored anesthesia care. Thalia was comfortable with this plan. Thank you again for allowing me to participate in Thalia's care. I shall continue to keep you advised of her progress. 03/04/2025 Encounter for screening for malignant neoplasm of colon (ICD-10 - Z12.11) Overall, Thalia appears quite well. Given her age, good clinical appearance, history of a previous tubular adenoma, and her last colonoscopy approaching 8 years ago, I did recommend a follow-up colonoscopy for further screening purposes. We did review the rationale for this in regard to colon cancer prevention. Full consent has been obtained for this, including risks of bleeding and perforation. The procedure will be done with monitored anesthesia care. Thalia was comfortable with this plan. Thank you again for allowing me to participate in Thalia's care. I shall continue to keep you advised of her progress. Plan Of Treatment Pending Test Test Name Order Date COLONOSCOPY 03/04/2025 Future Test Test Name Order Date COLONOSCOPY 04/12/2017 Next Appt Details Provider Name:Tiago Candelaria , 06/03/2025 08:40:00 AM, [address] [place] [address] , [place], [place], [phone], Insurance Providers Payer Name Payer Address Payer Phone Subscriber Number Group Number Insured Name Patient Relationship to Insured Coverage Start Date Coverage End Date [facility] [address] [place] [phone] [id number] DAYA BRIANA Self - patient is the insured Medical (General) History Medical History History ICD Code Denies [place],DM,CVA,Lung disease,renal dise ase Colonoscopy in 09/2010- 1 sma ll tubular adenoma, mild sigmoid diverticulosis, internal hemorrhoids Hypertension Negative screening colonoscopy in 7 Atrial fibrillation---but resolved
--- OUTSIDE RECORDS SUMMARY | 2025-05-06 19:12 | XMS_ITS | Clinical Summary ---
Author Organization [facility] Address [address] [facility] [address] [place] [id number] Phone Care Team Providers Care Aids Social Worker Name Role Phone Tiago Green DO Primary Care Provider Allergies No known active allergies Medications ciclopirox (CICLODAN) 0.77 % cream Apply topically 2 (two) times a day. Gently massage into affected areas and surrounding skin Active clotrimazole (LOTRIMIN) 1 % cream Apply topically 2 (two) times a day. 60 g 0 Active Active Problems Problem Noted Date Diagnosed Date Rash and other nonspecific skin eruption 020 Social History Tobacco Use Types Packs/Day Years Used Date Smoking Tobacco: Former Smokeless Tobacco: Never Comments:years ago per patie nt Alcohol Use Standard Drinks/Week Comments Yes 0 (1 standard drink = 0.6 oz pur e alcohol) socially Education Answer Date Recorded Are you interested in more education? Not on keiry e 11/17/2022 Are you concerned about learning? Not on file 11/17/2022 No 11/17/2022 No 11/17/2022 Digital Access Answer Date Recorded No 12/16/2022 No 12/16/2022 No 12/16/2022 Reliable internet access at home? Not on file 12/16/2022 Device with a working camera? Not on file Comments Unknown Sex and Gender Information Value Date Recorded Sex Assigned at Not on file Legal Sex Female 5:52 PM EDT Gender Identity Not on file Sexual Orientation Not on file Last Filed Vital Signs Vital Sign Reading Time Taken Comments Blood Pressure 142/76 04/20/2020 6:02 PM EDT Pulse 84 04/20/2020 6:02 PM EDT Temperature 36.9 C (98.4 F) 04/20/2020 6:02 PM EDT Respiratory Rate - - Oxygen Saturation 98% 04/20/2020 6:02 PM EDT Inhaled Oxygen Concentration - - Weight 96.6 kg (213 lb) 04/20/2020 6:02 PM EDT Height - - Body Mass Index - - Plan of Treatment Health Maintenance Due Date Last Done Comments LIPID PANEL 1953 DEPRESSION SCREENING 1965 SMOKING Hx and SMOKELESS TOBACCO SCREENING 1966 HEPATITIS C SCREENING 1971 MAMMOGRAM 1993 COLOGUARD 1998 COLONOSCOPY 1998 COLORECTAL CANCER SCREENING 1998 FIT TEST 1998 FOBT 1998 SIGMOIDOSCOPY 1998 VIRTUAL COLONOSCOPY 1998 OSTEOPOROSIS SCREENING INITI AL (ONE-TIME) 2018 PNEUMOCOCCAL VACCINES (50+ years) (2 of 2 - PPSV23) 08/10/2019 08/10/2018 Adult Td,Tdap Booster 02/21/2023 02/21/2013 INFLUENZA VACCINE (#1) 2025 0, 05/24/2015 COVID-19 VACCINE (2 - 2024-2 6 season) 2025 09/18/2020 RSV VACCINE (1 - 1-dose 75+ series) 2028 ZOSTER VACCINES Completed 08/06/2020, 05/30/2020 HEPATITIS A VACCINES Aged Out No long er eligible based on patient's age to complete this topic HIB VACCINES Aged Out No longer eligi ble based on patient's age to complete this topic MENINGOCOCCAL VACCINES (ACWY) Aged Out No longer eligible based on patient's age to complete this topic MENINGOCOCCAL VACCINES (B) Aged Out N o longer eligible based on patient's age to complete this topic Medical Devices Not on file Insurance [facility] [address] [place], [place] [id number] [place], [place] [id number] [facility] [address] [place] [id number] [facility] Care Teams Aids Social Worker Relationship Specialty Start Date End Date Tiago Green DO [address] [place] [id number] PCP - General Internal Medicine 04/20/20 Additional Source Comments The information contained in this document represents components of the legal health record. It is not the complete legal health record.[facility]
== END 2025-05-06 16:37 | disposition home or self-care (01) ==
LOC: HO.HMCSH 16:00
PROVIDERS: PCP Physician Assistant Medical; Visit Provider Physician Assistant Medical
DX: Z23 Encounter for immunization (principal); I10 Essential (primary) hypertension

== ENCOUNTER → 2025-05-06 16:00 | Outpatient (BNVA) | payer OTHER, SELFPAY | PROVIDERS: PCP Physician Assistant Medical; Visit Provider Physician Assistant Medical | DX: I10 Essential (primary) hypertension (principal); Z79.899 Other long term (current) drug therapy | CPT/HCPCS: 90471; 96127 ==

== ENCOUNTER 2025-06-03 07:26 | Day surgery (SDC) | payer OTHER, SELFPAY ==
--- OUTSIDE RECORDS SUMMARY | 2025-05-26 17:38 | XMS_ITS | Patient Health Record ---
Author Organization [facility]ef[facility] Address [address] [place] [address] Care Team Providers Care Pay Per Click Strategist Name Role Phone Tiago Green MD Primary Care Provider Unavail able Randy Quezada Unavailable [phone] Allergies No Known Allergies Reason For Referral [...] Insured Coverage Start Date Coverage End Date [facility] [address] [facility] [place] [id number] [phone] [id number] Tina Mccarthy Self - patient is the insured Medical (General) History Medical History History ICD Code covid-19 Warts Surgical History Surgery Date(Month/Year) Hospitalization History Reason Date(Month/Year) urgent care - ear pain 2020
--- OUTSIDE RECORDS SUMMARY | 2025-05-26 17:39 | XMS_ITS | Clinical Summary ---
Author Organization [facility] Address [address] [address] Phone Care Team Providers Care Holistic Pulser Name Role Phone Tiago Green DO Primary [...] topic Medical Devices Not on file Insurance [facility] [place] [address] [place] [id number] [place] [id number] [facility] [address] [place] [id number] [facility] Care Teams Holistic Pulser Relationship Specialty Start Date End Date Tiago Green DO [address] [place] [id number] PCP - General Internal Medicine 04/20/20 Additional Source Comments The information contained in this document represents components of the legal health record. It is not the complete legal health record.[facility]
--- OUTSIDE RECORDS SUMMARY | 2025-05-26 17:39 | XMS_ITS | Patient Health Record ---
Author Organization [facility] Address [address] [place] [address] Care Team Providers Care Director Of Technology Name Role Phone JAMES ACEVEDO PA-C Primary Care Provider Tiago Tineo Unavailable [phone] Allergies No Known Allergies Reason For Referral [...] Problem Screening for malignant neoplasm of colon (357100424) Encounter for screening for malignant neoplasm of colon (Z12.11) Active confirmed Problem History of adenomatous polyp of colon (385451675) History of adenomatous polyp of colon (Z86.010) Active confirmed Problem Preprocedural examination (005264568626933) Preprocedural examination (Z01.818) Active confirmed Vital Signs Heart Rate 80 /min 03/04/2025 Temperature 97.8 degrees Fahrenheit 03/04/2025 Blood pressure diastolic 01 mm Hg 03/04/2025 Height 66 in 03/04/2025 Blood pressure systolic 001 mm Hg 03/04/2025 Weight 220.2 lbs 03/04/2025 BMI 35.54 kg/m2 03/04/2025 Procedures Procedure Date Ordered Date Performed Result Body Sit e COLONOSCOPY 03/04/2025 N/A Encounters Encounter Location Date Provider Diagnosis [facility] [address] [place] [address] 03/04/2025 Tiago Candelaria History of adenomato us [...] again for allowing me to participate in Thaila's care. I shall continue to keep you advised of her progress. Plan Of Treatment Pending Test Test Name Order Date COLONOSCOPY 03/04/2025 Future Test Test Name Order Date COLONOSCOPY 04/12/2017 Next Appt Details Provider Name:Tiago Candelaria , 06/03/2025 08:40:00 AM, [address] [place] [address] , [place], [place], [phone], Insurance Providers Payer Name Payer Address Payer Phone Subscriber Number Group Number Insured Name Patient Relationship to Insured Coverage Start Date Coverage End Date [facility] [address] [place] [phone] [id number] DAYA BRIANA Self - patient is the insured Medical (General) History Medical History History ICD Code Denies [place],DM,CVA,Lung disease,renal dise ase Colonoscopy in 09/2010- 1 sma ll tubular adenoma, mild sigmoid diverticulosis, internal hemorrhoids Hypertension Negative screening colonoscopy in 7 Atrial fibrillation---but resolved
--- NOTE | 2025-06-01 09:30 | HO.ANESPROP2 ---
Documented by User: Swapna Mederos NP 06/01/25 09:33 HPI - Anesthesia Eval Consult details Narrative: 69yo F for Colonoscopy DNR/DNI Per PCP documentation - hx of afib years ago, no longer on medication PMF Active Problems Active Problems: All Active Problems Elevated ALT measurement (Acute) Class 2 obesity with body mass index (BMI) of 37.0 to 37.9 in adult (Acute) Encounter for brief counseling about health care proxy document (Acute) DNR (do not resuscitate) (Acute ~12/26/24) DNI (do not intubate) (Acute ~12/26/24) Heart murmur (Acute) Hypertension (Acute) Atrial fibrillation (Acute) Internal hemorrhoids (Acute) History of diverticulosis (Acute) Tubular adenoma (Acute) Pure hypercholesterolemia, unspecified (Acute) Hyperlipidemia (Acute) Establishing care with new doctor, encounter for (Acute) Hives (Acute) Past Medical History Medical History Elevated ALT measurement Class 2 obesity with body mass index (BMI) of 37.0 to 37.9 in adult Encounter for brief counseling about health care proxy document DNR (do not resuscitate) (~12/26/24) DNI (do not intubate) (~12/26/24) Heart murmur Hypertension Atrial fibrillation Internal hemorrhoids History of mammogram (~07/2024) History of diverticulosis Tubular adenoma Pure hypercholesterolemia, unspecified Hyperlipidemia Establishing care with new doctor, encounter for Family History Family History Father Lung cancer Mother Cancer Surgical History Surgical History History of colonoscopy (~06/01/17) Social History Social History Housing: Condominium Alcohol intake: current Alcohol intake frequency: holidays/special occasions only Patient Tobacco Use Status: Former Tobacco user Use of substances other than those prescribed or required for medical reasons: No Advance Directives: No Advance Directives Information Provided: Yes service: No Current occupational status: employed Cognitive needs: No Hearing needs: No Vision needs: Yes (rx glasses) Meds Allergies Allergy/AdvReac Type Severity Reaction Status Date / Time No Known Allergies Allergy Verified 05/06/25 17:37 Home Medications ?Medication ?Instructions ?Recorded ?Confirmed ?Last Taken ?Type lisinopril 20 mg tablet 10 mg PO DAILY 06/01/25 06/01/25 Unknown History wvfrhnoarwpf-kwjtvjes-bfjukr tablet 1 tab PO DAILY 06/01/25 06/01/25 Unknown History Exam Pertinent Lab Results Pertinent Lab Results: Laboratory Tests 01/08/25 08:05 WBC 6.9 Hgb 13.6 Hct 41.4 Plt Count 225 Sodium 141 Potassium 4.1 Chloride 107 Carbon Dioxide 27 BUN 9 Creatinine 0.63 Assessment and Plan Assessment Anesthesia Assessment: Chart Reviewed Documented by User: Guillermo Kovacs MD 06/03/25 08:17 [facility] Past Medical History Medical History Elevated ALT measurement Class 2 obesity with body mass index (BMI) of 37.0 to 37.9 in adult Encounter for brief counseling about health care proxy document DNR (do not resuscitate) (~12/26/24) DNI (do not intubate) (~12/26/24) Heart murmur Hypertension Atrial fibrillation Internal hemorrhoids History of mammogram (~07/2024) History of diverticulosis Tubular adenoma Pure hypercholesterolemia, unspecified Hyperlipidemia Establishing care with new doctor, encounter for Functional capacity: independent ambulation Patient : No Family History Family History Father Lung cancer Mother Cancer Family history of problems with anesthesia: No Surgical History Surgical History History of colonoscopy (~06/01/17) History of Problems with Anesthesia: Yes Social History Social History Housing: Condominium Alcohol intake: current Alcohol intake frequency: holidays/special occasions only Patient Tobacco Use Status: Former Tobacco user Use of substances other than those prescribed or required for medical reasons: No Advance Directives: No Advance Directives Information Provided: Yes service: No Current occupational status: employed Cognitive needs: No Hearing needs: No Vision needs: Yes (rx glasses) Meds Allergies Allergy/AdvReac Type Severity Reaction Status Date / Time No Known Allergies Allergy Verified 05/06/25 17:37 Home Medications ?Medication ?Instructions ?Recorded ?Confirmed ?Last Taken ?Type lisinopril 20 mg tablet 10 mg PO DAILY 06/01/25 06/01/25 Unknown History tcfjfatlqufu-roriuyiu-xwupek tablet 1 tab PO DAILY 06/01/25 06/01/25 Unknown History Exam Exam Date and Time: 06/03/2025 Airway Mallampati Class: II TM Dist: >3cm Neck ROM: Full Heart: normal Lungs: normal Other: normal Assessment and Plan Final Anesthetic Review Family History of Problems with Anesthesia: No History of Problems with Anesthesia: Yes NPO: Yes ASA Class: II Final Preanesthetic Review: No Changes in Pt Med Stat, Meds/Allgs Chart Reviewed, Consent Obtained/Reviewed and Anes Risks/Benef Reviewed Patient Risk: Low Procedure Risk: Low Anesthetic Plan Disposition: Standard PACU
[2025-06-01 12:45] VITALS: BMI 35.5
[2025-06-03 07:38] VITALS: BMI 35.1
[2025-06-03 07:51] VITALS: BP 163/73; PULSE 94; RESP 16; TEMP 36.6; O2SAT 98
[2025-06-03] MEDS: Lactated Ringers 1,000 ML 100 ML IVCONT (07:51)
[2025-06-03 09:48] VITALS: BP 108/44; PULSE 68; RESP 14; TEMP 36.2; O2SAT 97
--- NOTE | 2025-06-03 09:51 | PM.OP ---
Brief Operative Note Date of Service: 06/03/25 Pre-op diagnosis: Screening Post-op diagnosis: other (Colon polyp) Procedure: Colonosocpy to the cecum and TI with hot snare polypectomy x 1 with placement of 2 Resolution clips. Surgeon: Tiago Candelaria MD Anesthesia: MAC Was an Fabric Awning Repairer used for this Procedure?: No Estimated blood loss (mL): 0 Pathology: other (A. Polyp at 30cm) Condition: stable Disposition: PACU
[2025-06-03 10:03] VITALS: BP 137/70; PULSE 67; RESP 16; TEMP 36.9; O2SAT 97
--- NOTE | 2025-06-03 11:21 | OP_ITS ---
DATE OF SERVICE: 06/03/2025 SURGEON: Tiago Candelaria MD INDICATIONS: The patient presents for evaluation of colorectal cancer screening and personal history of tubular adenoma of the colon. Full consent has been obtained from her for this, including risks of bleeding and perforation. PREOPERATIVE DIAGNOSIS: Colorectal cancer screening and personal history of tubular adenoma of the colon. POSTOPERATIVE DIAGNOSIS: Colorectal cancer screening and personal history of tubular adenoma of the colon, colon polyp, diverticulosis, and internal hemorrhoids. PROCEDURE PERFORMED: Colonoscopy to the cecum and terminal ileum with hot snare polypectomy and placement of 2 resolution clips. ESTIMATED BLOOD LOSS: COMPLICATIONS: ANESTHESIA: Monitored anesthesia care. ASSISTANTS: SPECIMENS: DESCRIPTION OF PROCEDURE: The patient was placed in the left lateral decubitus position. The digital rectal exam revealed no abnormalities. The Olympus video pediatric colonoscope advanced easily to the cecum. Once in the cecum, I did identify a normal-appearing cecal pouch with appendiceal orifice and a normal-appearing ileocecal valve. The terminal ileum was cannulated and appeared normal. The scope was withdrawn back in the colon. The entire cecum and ileocecal valve appeared normal. The scope was then slowly withdrawn assessing all mucosal surfaces carefully. Preparation was excellent. At 30 cm was an approximately 1.5 cm polyp, which was removed at the base of the stalk by hot snare polypectomy. The polypectomy site appeared clean, without any sign of residual polyp nor bleeding. The polyp was taken out of the patient by withdrawing it on the tip of the scope. The scope was advanced back to the polypectomy site, which again appeared clean, without any sign of residual polyp nor bleeding. Two resolution clips were placed on the polypectomy site with good deployment and good hemostasis. I did not visualize any other polyps, colitis, nor angiodysplasia. There was a mild amount of sigmoid diverticulosis. In the rectum, scope was retroflexed visualizing internal hemorrhoids, but no other pathology. The rectal mucosa appeared normal. The scope was straightened and withdrawn from the patient. She tolerated the procedure well and was returned to recovery area in stable condition. IMPRESSION: 1. Colon polyp. 2. Diverticulosis. 3. Internal hemorrhoids. PLAN: The results of the pathology will be checked. I would recommend a repeat colonoscopy within 3 years for further screening and surveillance given the size of the polyp. She was advised not to use any aspirin and NSAIDs for 1 week. MD ISAAC Becerra/ANATOLY / [id number] [place]
== END 2025-06-03 10:26 | disposition home or self-care (01) ==
PROVIDERS: PCP Physician Assistant Medical; Visit Provider Internal Medicine
PROC: 0DJD8ZZ Inspection of Lower Intestinal Tract, Via Natural or Artificial Opening Endoscopic (ICD-10-PCS; CPT 45378; principal; 2025-06-03 08:40)
DX: Z12.11 Encounter for screening for malignant neoplasm of colon (principal); Z86.0101 Personal history of adenomatous and serrated colon polyps; K57.30 Diverticulosis of large intestine without perforation or abscess without bleeding; D12.4 Benign neoplasm of descending colon
CPT/HCPCS: 45385; 88305; J2003; J2704; J3010